=== PATIENT | male | born 1960 | race Caucasian/White ===

== ENCOUNTER 2016-10-19 11:04 | Emergency (ER) | payer BC ==
[2016-10-19] MEDS ORDERED: RX INFO: IV CONTRAST WAS GIVEN 1 EACH MISC MISCELLANE PRN (11:14)
[2016-10-19] MEDS ORDERED: SODIUM CHLORIDE 0.9% 500 ML IV STA (11:14)
[2016-10-19] MEDS ORDERED: SODIUM CHLORIDE 0.9% 1,000 ML IV STA (11:14)
[2016-10-19] MEDS: HYDROmorphone 1 MG/ML 1 ML SYRINGE IVP STA ×2 (11:19→13:00)
[2016-10-19 11:24] LABS: Basophils # (A) 0.1 k/uL (0-0.2); Basophils % (A) 1 %; CH 31.7; CHCM 34.8; Eosinophils # (A) 0.2 k/uL (0-0.7); Eosinophils % (A) 3 %; HCT 50.2 % (39.0-53.0); HDW 2.57; HGB 16.9 gm/dL (13.0-17.5); Luc # (Auto) 0.17; Luc % (Auto) 2; Lymphocytes # (A) 2.6 k/uL (1.0-4.8); Lymphocytes % (A) 30 %; MCH 30.9 pg (25.0-35.0); MCHC 33.7 g/dL (31.0-37.0); MCV 91.6 fL (80.0-100.0); Mean Platelet Volume 6.8; Monocytes # (A) 0.5 k/uL (0-1.0); Monocytes % (A) 6 %; Neutrophils # (A) 5.2 k/uL (1.3-7.7); Neutrophils % (A) 59 %; RBC 5.48 m/uL (4.30-5.90); RDW 13.6 % (11.5-15.5); WBC 8.8 k/uL (3.8-10.6); WBC (Perox) 8.22
--- NOTE | 2016-10-19 11:30 | ED ---
General Adult HPI - General Chief complaint: Trauma Stated complaint: Fall Time Seen by Provider: 10/19/16 11:13 Source: patient, family, EMS, RN notes reviewed Mode of arrival: EMS Limitations: no limitations - History of Present Illness Initial comments: Patient is a pleasant 56-year-old male presenting to the emergency department following a fall. Patient was up on a ladder towards the top of his house, possibly as high as 20 feet. Patient does not recall why he fell. Patient does not remember falling. Patient did fall and EMS suspects patient landed on his head and shoulder first. Patient does have moderate to severe discomfort of the posterior head and right shoulder. Patient has moderate discomfort of the left hip. Patient did not attempt to ambulate. Patient reportedly did lose consciousness between 1 and 2 minutes. Last tetanus immunization was within the past 2 years. Patient denies confusion at this time. Patient denies weakness. No vomiting. Discomfort is currently rated 8/10. Patient denies chest pain or dyspnea or abdominal pain. - Related Data Home Medications Medication Instructions Recorded Confirmed Atorvastatin [Lipitor] 40 mg PO DAILY 10/19/16 10/19/16 Cholecalciferol [Vitamin D3] 2,000 unit PO DAILY 10/19/16 10/19/16 Escitalopram [Lexapro] 10 mg PO DAILY 10/19/16 10/19/16 Liraglutide [Victoza 2-Lewis] 1.8 mg SQ DAILY 10/19/16 10/19/16 Loratadine [Claritin] 10 mg PO DAILY 10/19/16 10/19/16 Losartan-Hctz 50-12.5 mg [Hyzaar 1 tab PO DAILY 10/19/16 10/19/16 50-12.5] Metoprolol Succinate [Toprol XL] 50 mg PO DAILY 10/19/16 10/19/16 Mometasone Furoate [Nasonex] 2 spray EA NOSTRIL DAILY 10/19/16 10/19/16 Montelukast [Singulair] 10 mg PO DAILY 10/19/16 10/19/16 Terazosin [Hytrin] 2 mg PO HS 10/19/16 10/19/16 metFORMIN HCL [Metformin HCl] 500 mg PO BID 10/19/16 10/19/16 Allergies Allergy/AdvReac Type Severity Reaction Status Date / Time No Known Allergies Allergy Verified 10/19/16 11:26 Review of Systems ROS Statement: Those systems with pertinent positive or pertinent negative responses have been documented in the HPI. ROS Other: All systems not noted in ROS Statement are negative. Constitutional: Denies: fever Eyes: Denies: eye pain ENT: Denies: ear pain Respiratory: Denies: cough, dyspnea Cardiovascular: Denies: chest pain Endocrine: Denies: fatigue Gastrointestinal: Denies: abdominal pain Genitourinary: Denies: urgency Musculoskeletal: Denies: back pain Skin: Denies: rash Neurological: Reports: headache General Exam Limitations: no limitations General appearance: alert Head exam: Present: other (Posterior scalp abrasion) Eye exam: Present: normal appearance, PERRL, EOMI. Absent: nystagmus ENT exam: Present: normal oropharynx Neck exam: Present: normal inspection, other (C-collar is in place). Absent: tenderness Respiratory exam: Present: normal lung sounds bilaterally, chest wall tenderness (Minimal tenderness left lower ribs) Cardiovascular Exam: Present: regular rate, normal rhythm Expanded Peripheral pulses: 2+: Radial (R), Radial (L), Dorsalis Pedis (R), Dorsalis Pedis (L) GI/Abdominal exam: Present: soft, tenderness (Mild tenderness and mild erythema right mid abdomen). Absent: distended Extremities exam: Present: tenderness (Tenderness and pain with range of motion left anterior and lateral hip. Tenderness and pain with range of motion right shoulder and right lateral clavicle) Back exam: Present: normal inspection. Absent: tenderness, vertebral tenderness Neurological exam: Present: alert, oriented X3, CN II-XII intact. Absent: motor sensory deficit Psychiatric exam: Present: normal affect, normal mood Skin exam: Present: abrasion (Posterior scalp) Course - Reevaluation(s) Reevaluation #1: 10/19/16 12:37 Case was earlier discussed with on-call surgeon Dr. Devine at 11:08 AM. Patient and family updated on results and plan. They do request [facility] secondary to history of aortic aneurysm. 10/19/16 12:45 Case was discussed with Dr. Cullen at [facility] who will accept transfer. EKG Findings - EKG Comments: EKG Findings:: Normal sinus rhythm 84. First 3 AV block AZ of 202. QRS 128. QT 398. QTC 470. Right bundle martha block. Superior axis. Inferior Q waves. Inverted T waves leads 3 and aVF. Medical Decision Making - Lab Data Result diagrams: 10/19/16 11:11 10/19/16 11:11 Lab Results 10/19/16 10/19/16 10/19/16 Range/Units 11:11 11:11 11:11 WBC 8.8 (3.8-10.6) k/uL RBC 5.48 (4.30-5.90) m/uL Hgb 16.9 (13.0-17.5) gm/dL Hct 50.2 (39.0-53.0) % MCV 91.6 (80.0-100.0) fL MCH 30.9 (25.0-35.0) pg MCHC 33.7 (31.0-37.0) g/dL RDW 13.6 (11.5-15.5) % Plt Count 246 (150-450) k/uL Neutrophils % 59 % Lymphocytes % 30 % Monocytes % 6 % Eosinophils % 3 % Basophils % 1 % Neutrophils # 5.2 (1.3-7.7) k/uL Lymphocytes # 2.6 (1.0-4.8) k/uL Monocytes # 0.5 (0-1.0) k/uL Eosinophils # 0.2 (0-0.7) k/uL Basophils # 0.1 (0-0.2) k/uL PT (9.0-12.0) sec INR (<1.1) APTT (22.0-30.0) sec Sodium 147 H (137-145) mmol/L Potassium 3.9 (3.5-5.1) mmol/L Chloride 110 H (98-107) mmol/L Carbon Dioxide 21 L (22-30) mmol/L Anion Gap 16 mmol/L BUN 25 H (9-20) mg/dL Creatinine 1.05 (0.66-1.25) mg/dL Est GFR (MDRD) Af Amer >60 (>60 ml/min/1.73 sqM) Est GFR (MDRD) Non-Af >60 (>60 ml/min/1.73 sqM) Glucose 118 H (74-99) mg/dL POC Glucose (mg/dL) (75-99) mg/dL POC Glu Micro Photographer ID Plasma Lactic Acid Luis (0.7-2.0) mmol/L Calcium 10.1 (8.4-10.2) mg/dL Total Bilirubin 1.0 (0.2-1.3) mg/dL AST 45 (17-59) U/L ALT 74 H (21-72) U/L Alkaline Phosphatase 69 (38-126) U/L Total Creatine Kinase (55-170) U/L CK-MB (CK-2) (0.0-2.4) ng/mL CK-MB (CK-2) Rel Index Troponin I (0.000-0.034) ng/mL Total Protein 8.0 (6.3-8.2) g/dL Albumin 4.8 (3.5-5.0) g/dL Amylase 64 (30-110) U/L Lipase 253 (23-300) U/L Serum Alcohol <10 mg/dL Blood Type O Positive Blood Type Recheck No Antibody Screen NEGATIVE Spec Expiration Date 10/22/2016 - 231010/19/16 10/19/16 10/19/16 Range/Units 11:11 11:11 11:11 WBC (3.8-10.6) k/uL RBC (4.30-5.90) m/uL Hgb (13.0-17.5) gm/dL Hct (39.0-53.0) % MCV (80.0-100.0) fL MCH (25.0-35.0) pg MCHC (31.0-37.0) g/dL RDW (11.5-15.5) % Plt Count (150-450) k/uL Neutrophils % % Lymphocytes % % Monocytes % % Eosinophils % % Basophils % % Neutrophils # (1.3-7.7) k/uL Lymphocytes # (1.0-4.8) k/uL Monocytes # (0-1.0) k/uL Eosinophils # (0-0.7) k/uL Basophils # (0-0.2) k/uL PT 10.3 (9.0-12.0) sec INR 1.0 (<1.1) APTT 20.4 L (22.0-30.0) sec Sodium (137-145) mmol/L Potassium (3.5-5.1) mmol/L Chloride (98-107) mmol/L Carbon Dioxide (22-30) mmol/L Anion Gap mmol/L BUN (9-20) mg/dL Creatinine (0.66-1.25) mg/dL Est GFR (MDRD) Af Amer (>60 ml/min/1.73 sqM) Est GFR (MDRD) Non-Af (>60 ml/min/1.73 sqM) Glucose (74-99) mg/dL POC Glucose (mg/dL) (75-99) mg/dL POC Glu Micro Photographer ID Plasma Lactic Acid Luis 3.2 H* (0.7-2.0) mmol/L Calcium (8.4-10.2) mg/dL Total Bilirubin (0.2-1.3) mg/dL AST (17-59) U/L ALT (21-72) U/L Alkaline Phosphatase (38-126) U/L Total Creatine Kinase 257 H (55-170) U/L CK-MB (CK-2) 1.3 (0.0-2.4) ng/mL CK-MB (CK-2) Rel Index 0.5 Troponin I <0.012 (0.000-0.034) ng/mL Total Protein (6.3-8.2) g/dL Albumin (3.5-5.0) g/dL Amylase (30-110) U/L Lipase (23-300) U/L Serum Alcohol mg/dL Blood Type Blood Type Recheck Antibody Screen Spec Expiration Date 10/19/16 Range/Units 11:21 WBC (3.8-10.6) k/uL RBC (4.30-5.90) m/uL Hgb (13.0-17.5) gm/dL Hct (39.0-53.0) % MCV (80.0-100.0) fL MCH (25.0-35.0) pg MCHC (31.0-37.0) g/dL RDW (11.5-15.5) % Plt Count (150-450) k/uL Neutrophils % % Lymphocytes % % Monocytes % % Eosinophils % % Basophils % % Neutrophils # (1.3-7.7) k/uL Lymphocytes # (1.0-4.8) k/uL Monocytes # (0-1.0) k/uL Eosinophils # (0-0.7) k/uL Basophils # (0-0.2) k/uL PT (9.0-12.0) sec INR (<1.1) APTT (22.0-30.0) sec Sodium (137-145) mmol/L Potassium (3.5-5.1) mmol/L Chloride (98-107) mmol/L Carbon Dioxide (22-30) mmol/L Anion Gap mmol/L BUN (9-20) mg/dL Creatinine (0.66-1.25) mg/dL Est GFR (MDRD) Af Amer (>60 ml/min/1.73 sqM) Est GFR (MDRD) Non-Af (>60 ml/min/1.73 sqM) Glucose (74-99) mg/dL POC Glucose (mg/dL) 109 H (75-99) mg/dL POC Glu Micro Photographer ID Smita Blackman Plasma Lactic Acid Luis (0.7-2.0) mmol/L Calcium (8.4-10.2) mg/dL Total Bilirubin (0.2-1.3) mg/dL AST (17-59) U/L ALT (21-72) U/L Alkaline Phosphatase (38-126) U/L Total Creatine Kinase (55-170) U/L CK-MB (CK-2) (0.0-2.4) ng/mL CK-MB (CK-2) Rel Index Troponin I (0.000-0.034) ng/mL Total Protein (6.3-8.2) g/dL Albumin (3.5-5.0) g/dL Amylase (30-110) U/L Lipase (23-300) U/L Serum Alcohol mg/dL Blood Type Blood Type Recheck Antibody Screen Spec Expiration Date - Radiology Data Radiology results: image reviewed (X-ray of the right shoulder shows scapular fracture. X-ray left hip show suspicion for acetabular fracture. 1 view chest x-ray shows borderline mediastinum. X-ray of the pelvis shows no acute fracture. Questionable acetabular involvement. Computed tomography scan of the chest shows displaced right scapular fracture, left ninth and 10th rib fracture. CAT scan of the abdomen and pelvis shows A left renal cyst versus neoplasm, left transverse L1 through L5 3 process fracture. Left iliac bone fracture suspected from the sacroiliac joint to the anterior column of the acetabulum. Computed tomography scan the brain reveals no acute process. Computed tomography scan of cervical spine reveals no fracture. Degenerative disc disease is present.) Critical Care Time Critical Care Time: Yes Total Critical Care Time: 36 Disposition Clinical Impression: Right scapula fracture, Concussion, Left rib fracture, Fracture of transverse process of lumbar vertebra, Acetabulum fracture, left, Fracture dislocation of sacroiliac joint Disposition: OTHER INSTITUTION NOT DEFINED Referrals: Billie Haji, [Primary Care Provider] - 1-2 days Time of Disposition: 12:47 - Out of Hospital Transfer - Req. Specs Out of Hospital Transfer - Requested Specifics: Other Emergency Center
[2016-10-19 11:33] LABS: Glucose,Whole Blood 109 mg/dL (75-99)
[2016-10-19 11:44] LABS: Prothrombin Time 10.3 sec (9.0-12.0)
[2016-10-19] MEDS ORDERED: ONDANSETRON 4 MG/2 ML VIAL IVP STA (11:45)
--- NOTE | 2016-10-19 11:45 | XR ---
EXAMINATION TYPE: XR chest 1V portable DATE OF EXAM: 10/19/2016 COMPARISON: NONE HISTORY: Pain post fall TECHNIQUE: Single frontal view of the chest is obtained. FINDINGS: There is no focal air space opacity, pleural effusion, or pneumothorax seen. The cardiac silhouette size is within normal limits. The osseous structures are intact. Mediastinum is somewhat prominent. IMPRESSION: Mediastinum widened correlate clinically.
[2016-10-19 11:46] LABS: Partial Thromboplastin Time 20.4 sec (22.0-30.0)
--- NOTE | 2016-10-19 11:47 | XR ---
EXAMINATION TYPE: XR pelvis AP view DATE OF EXAM: 10/19/2016 COMPARISON: NONE HISTORY: Pain post fall The osseous structures are intact and the joint spaces are preserved. No acute fracture is seen. Vi sualized bowel gas pattern is nonspecific. IMPRESSION: 1. No acute fracture.
[2016-10-19 11:49] LABS: Creatine Kinase 257 U/L (55-170)
--- NOTE | 2016-10-19 11:57 | CT ---
EXAMINATION TYPE: CT brain mere ledezma con DATE OF EXAM: 10/19/2016 COMPARISON: NONE HISTORY: Fall from roof, pt struck back of head CT DLP: 1813.3 mGycm Automated exposure control for dose reduction was used. TECHNIQUE: CT scan of the head and cervical spine are performed without contrast. FINDINGS: There is no acute intracranial hemorrhage, mass effect, or midline shift identified. The ventricles and sulci are within normal limits in size. The globes are intact and the visualized sin uses are clear. Cervical spine is limited assessment spinal canal limited due to technique and artifact. Multilevel degenerative disc disease with severe changes at C5-C6 and C6-C7 posterior spondylosis and possible canal stenosis. Mild multilevel facet arthropathy. Uncovertebral joint hypertrophy seen at virtually all levels. There appears to be a fracture portion of the scapula included on exam. IMPRESSION: 1. There is no acute fracture or dislocation evident in the cervical spine. 2. No acute intracranial hemorrhage, mass effect, or midline shift is seen. 3. there appears be a fracture of the scapula which is only partially included on exam on the right. 4. Multilevel degenerative disc disease. Suspect canal stenosis at C5-6 and C6-C7. Follow-up MRI aditya mmended
[2016-10-19 12:02] LABS: Creatine Kinase MB 1.3 ng/mL (0.0-2.4); Troponin I <0.012 ng/mL (0.000-0.034)
[2016-10-19 12:03] LABS: ALT 74 U/L (21-72); AST 45 U/L (17-59); Alcohol <10 mg/dL; Alkaline Phosphatase 69 U/L (38-126); Anion Gap 16 mmol/L; Blood Urea Nitrogen 25 mg/dL (9-20); Calcium 10.1 mg/dL (8.4-10.2); Carbon Dioxide 21 mmol/L (22-30); Chloride 110 mmol/L (98-107); Glucose 118 mg/dL (74-99); Non-African American GFR(MDRD) >60 (>60 ml/min/1.73 sqM); Sodium 147 mmol/L (137-145)
[2016-10-19 12:04] LABS: Amylase 64 U/L (30-110); Potassium 3.9 mmol/L (3.5-5.1)
--- NOTE | 2016-10-19 12:15 | CT ---
EXAMINATION TYPE: CT ChestAbdPelvis w con DATE OF EXAM: 10/19/2016 COMPARISON: NONE HISTORY: Fall from roof, pt c/o Lt hip pain, Rt shoulder pain CT DLP: 1738.7 mGycm Automated exposure control for dose reduction was used. CONTRAST: CT scan of the chest, abdomen and pelvis is performed without Oral Contrast and with IV Contrast, pat ient injected with 100 mL of Omnipaque 300. FINDINGS: LUNGS: No sizable pneumothorax. Subsegmental changes posteriorly may be related to dependent atelecta sis. No pleural effusion. No sizable area of consolidation.. MEDIASTINUM: Heart size is normal. No retrosternal hematoma. No soft tissue or fluid within the media stinum. Motion artifact limits assessment of the aortic root. Aorta of normal caliber as visualized. The heart is prominent and there is a trace amount of pericardial fluid. OTHER: Displaced fracture of the right scapula. LIVER/GB: Tiny 5 mm hypodensity left lobe of the liver too small to characterize but likely related t o tiny cyst.. PANCREAS: No significant abnormality is seen. SPLEEN: No significant abnormality is seen. ADRENALS: No significant abnormality is seen. KIDNEYS: Hypodense lesion involving the left kidney measures 26 Hounsfield units does not meet the cr iteria of a cyst. The renal artery enhances normally at this level. Differential include a solid neop lasm, complicated cyst or possibly renal contusion. Correlate clinically. Correlate with urinalysis.. BOWEL: No significant abnormality is seen. : No gross abnormality seen. LYMPH NODES: No greater than 1 cm abdominal or pelvic lymph nodes are appreciated. OSSEOUS STRUCTURES: Fracture involving the anterior column of the left acetabulum. Degenerative randolph e of the spine. Right scapular fracture displaced. There is a fracture of the left 11th rib posteriorly in two locations. There is a fracture of the lef t 10th rib and ninth rib in one location posterior. Suspect a fracture involving the anterior, the left acetabulum extends into the left iliac bone to th e level of the left SI joint. Question left transverse process fracture L1 with definitive transverse process fractures of L2 and L 3. A defect involving the left facet at L5 superiorly appears chronic with sclerotic margins related to facet arthropathy. Multilevel degenerative disc disease and facet arthropathy noted. OTHER: Abdominal aorta of normal caliber. No free fluid or free air. IMPRESSION: 1. Displaced right scapular fracture. 2. Fracture through the left iliac bone extending from the left SI joint through the anterior column of the acetabulum. There may be minimal asymmetry of the SI joints on the left. 3. Left transverse process fracture L1-L3. Possibility L1 represents a congenital variant, whereas, L 2 and L3 left transverse fractures. Definitive. 4. Fractures of the left ninth 10th and left ribs posteriorly. Fracture involving the left lung as no yoli on coronal views appears in 2 locations. 5. Hypodensity within the left kidney does not meet the criteria of simple cyst. Most likely the basi s of a complicated cyst or neoplasm. However, pedicle site of trauma and contusion not entirely exclu ded. Correlate with urinalysis. 6. There is a tiny subcentimeter hypodensity within the left lobe of the liver too small to character ize. Likely chronic. Possibly tiny cyst.
--- NOTE | 2016-10-19 12:16 | XR ---
EXAMINATION TYPE: XR Hip Complete LT DATE OF EXAM: 10/19/2016 COMPARISON: NONE HISTORY: Pain TECHNIQUE: 2 views submitted FINDINGS: Lucency through the anterior column of the left acetabulum extending toward the iliac bone. IMPRESSION: 1. Findings suspicious for fracture involving the anterior column of the left acetabulum with extensi on into the left iliac bone.
--- NOTE | 2016-10-19 12:17 | XR ---
EXAMINATION TYPE: XR shoulder limited RT DATE OF EXAM: 10/19/2016 CLINICAL HISTORY: Pain TECHNIQUE: Three views of the right shoulder are obtained. COMPARISON: None. FINDINGS: There is deformity involving the superior margin of the scapula. Visualized ribs are intact . Lung clear. IMPRESSION: 1. Findings suggestive of superior scapular fracture.
[2016-10-19 13:12] VITALS: BP 142/70; PULSE 85; RESP 18; TEMP 98.3
== END 2016-10-19 13:03 | disposition short-term general hospital (02) ==
LOC: EC 11:04
DX: S06.0X1A Concussion with loss of consciousness of 30 minutes or less, initial encounter (principal); S42.101A Fracture of unspecified part of scapula, right shoulder, initial encounter for closed fracture; S22.32XA Fracture of one rib, left side, initial encounter for closed fracture; S32.019A Unspecified fracture of first lumbar vertebra, initial encounter for closed fracture; S32.029A Unspecified fracture of second lumbar vertebra, initial encounter for closed fracture; S32.039A Unspecified fracture of third lumbar vertebra, initial encounter for closed fracture; S32.432A Displaced fracture of anterior column [iliopubic] of left acetabulum, initial encounter for closed fracture; S32.10XA Unspecified fracture of sacrum, initial encounter for closed fracture; Z79.84 Long term (current) use of oral hypoglycemic drugs; Z79.899 Other long term (current) drug therapy; W11.XXXA Fall on and from ladder, initial encounter; Y92.009 Unspecified place in unspecified non-institutional (private) residence as the place of occurrence of the external cause
CPT/HCPCS: 99291; 96374; 96375; 96361; 36415; 93005; 86900; 86901; 80053; 82150; 82550; 82553; 83605; 83690; 84484; 85025; 85610; 85730; 86850; 80320; 71010; 72170; 73502; 73020; 72125; 70450; 71260; 74177; J2405; J1170; Q9967

== ENCOUNTER → 2017-01-13 | Outpatient (CLI) | payer OTHER ==
--- NOTE | 2017-01-13 08:21 | MR ---
EXAMINATION TYPE: MR shoulder RT wo con DATE OF EXAM: 01/13/2017 COMPARISON: Right shoulder x-ray October 19, 2016. Outside right shoulder x-ray January 07, 2017. HISTORY: Rt shoulder pain per order. Sharp pain for 2 months with difficulty raising overhead per pat ient. TECHNIQUE: Multiplanar, multisequence imaging of the right shoulder is performed without contrast. FINDINGS: Rotator Cuff: There is marked increased signal distal supraspinatus and infraspinatus tendons from ac romion level to superior lateral humeral head attachment. In addition there focal articular surface t ears identified. For reference significant partial tear supraspinatus tendon is seen at articular brian face measuring 12 mm AP diameter and 12 mm transversely on parasagittal images 21 and paracoronal jeniffer ge 11. There is full-thickness partial tear of the supraspinatus tendon seen best paracoronal image 1 7 measuring roughly 4 mm transversely by 7 mm AP diameter on parasagittal image 23. Rotator cuff musc le bulk is preserved. Some increased signal and surrounding fluid is seen in subscapularis tendon best on axial image 12. Acromioclavicular Joint: There is capsular hypertrophy and joint space loss at acromioclavicular join t. Inferior fat plane is maintained. Glenohumeral Joint: There is moderate glenohumeral joint effusion. Joint space loss is present. No si gnificant spurring is seen. Labrum: The labrum appears grossly intact given limitation of non-arthrogram study. Biceps Tendon: The long head of biceps is in normal location within bicipital groove. Surrounding flu id is likely related to joint effusion. Bone marrow signal: Heterogeneity is consistent with red marrow reconversion. Subchondral cystic carr ge superolateral humeral head is present. Other: No additional significant abnormality is appreciated. IMPRESSION: 1. Moderate to severe tendinosis with high-grade articular surface tears of supraspinatus and infrasp inatus tendons noted. 2. Moderate degenerative changes glenohumeral and acromioclavicular joints as detailed above. 3. Moderate subscapularis tendinosis and probable tenosynovitis.
== END | disposition home or self-care (01) ==
LOC: RADMRIMAIN 07:05
PROVIDERS: ATTEND Orthopaedic Surgery
DX: S46.011A Strain of muscle(s) and tendon(s) of the rotator cuff of right shoulder, initial encounter (principal); M75.91 Shoulder lesion, unspecified, right shoulder

== ENCOUNTER 2017-09-27 21:06 | Emergency (ER) | payer BC, OTHER ==
--- NOTE | 2017-09-27 22:19 | ED ---
Skin/Abscess/FB HPI - General Chief complaint: Skin/Abscess/Foreign Body Stated complaint: Hand injury Time Seen by Provider: 09/27/17 21:23 Source: patient, family Mode of arrival: ambulatory Limitations: no limitations - History of Present Illness Initial comments: This patient is a 57-year-old man who presents to be evaluated for bleeding from a spot on his right hand, where he had frozen wart off. The patient states that he bumped the hand and it started bleeding this afternoon and it continues to have small amounts of bleeding since that time. He denies symptoms of anemia, including no chest pain, dyspnea, lightheadedness, diaphoresis, palpitations or syncope. MD complaint: other -: hour(s) Tetanus Up to Date: yes Location: R hand Severity: mild Quality: other (No pain) Improves with: none Worsens with: none Associated symptoms: denies other symptoms - Related Data Home Medications Medication Instructions Recorded Confirmed Atorvastatin [Lipitor] 40 mg PO DAILY 10/19/16 09/27/17 Cholecalciferol [Vitamin D3] 2,000 unit PO DAILY 10/19/16 09/27/17 Escitalopram [Lexapro] 10 mg PO DAILY 10/19/16 09/27/17 Liraglutide [Victoza 2-Lewis] 1.8 mg SQ HS 10/19/16 09/27/17 Loratadine [Claritin] 10 mg PO DAILY 10/19/16 09/27/17 Losartan-Hctz 50-12.5 mg [Hyzaar 1 tab PO DAILY 10/19/16 09/27/17 50-12.5] Metoprolol Succinate [Toprol XL] 50 mg PO DAILY 10/19/16 09/27/17 Mometasone Furoate [Nasonex] 2 spray EA NOSTRIL DAILY PRN 10/19/16 09/27/17 Montelukast [Singulair] 10 mg PO DAILY 10/19/16 09/27/17 metFORMIN HCL [Metformin HCl] 500 mg PO BID 10/19/16 09/27/17 Previous Rx's Medication Instructions Recorded HYDROcodone/APAP 7.5-325MG [[place] 1 each PO Q6HR PRN #30 tab 03/05/17 7.5] Allergies Allergy/AdvReac Type Severity Reaction Status Date / Time No Known Allergies Allergy Verified 09/28/17 15:03 Review of Systems ROS Statement: Those systems with pertinent positive or pertinent negative responses have been documented in the HPI. ROS Other: All systems not noted in ROS Statement are negative. Constitutional: Denies: fever, chills Respiratory: Denies: dyspnea Cardiovascular: Denies: chest pain, palpitations, syncope Skin: Reports: as per HPI, lesions Hematological/Lymphatic: Denies: easy bleeding Past Medical History Past Medical History: Diabetes Mellitus, Hyperlipidemia, Hypertension Additional Past Medical History / Comment(s): AAA- patient seen for this at [facility] yearly. History of Any Multi-Drug Resistant Organisms: None Reported Past Surgical History: Tonsillectomy Past Psychological History: Depression Smoking Status: Never smoker Past Alcohol Use History: None Reported Past Drug Use History: None Reported General Exam Limitations: no limitations General appearance: alert, in no apparent distress Skin exam: Present: warm, dry, normal color, other (The patient has an area of the exuberant granulation tissue to the palm of the hand where he had the wart frozen off.) Course Vital Signs 09/27/17 09/27/17 21:14 22:38 Temperature 97.9 F 97.8 F Pulse Rate 62 66 Respiratory 18 19 Rate Blood Pressure 177/88 163/82 O2 Sat by Pulse 97 96 Oximetry Medical Decision Making - Medical Decision Making Patient's 57-year-old man with small area of exuberant granulation tissue to the right palm. This was cauterized with silver nitrate. Discussed appropriate follow-up and further care. Discussed return parameters. Disposition Clinical Impression: Exuberant granulation tissue Disposition: HOME SELF-CARE Condition: Good Instructions: Acute Wounds (ED) Is patient prescribed a controlled substance at d/c from ED?: No Referrals: Billie Haji DO [Primary Care Provider] - 1-2 days Judd Torres MD [STAFF PHYSICIAN] - 1-2 days
[2017-09-27 22:40] VITALS: BP 163/82; PULSE 66; RESP 19; TEMP 97.8
== END 2017-09-27 22:40 | disposition home or self-care (01) ==
LOC: EC 21:06
DX: L92.9 Granulomatous disorder of the skin and subcutaneous tissue, unspecified (principal); E11.9 Type 2 diabetes mellitus without complications; I10 Essential (primary) hypertension; E78.5 Hyperlipidemia, unspecified; F32.9 Major depressive disorder, single episode, unspecified; Z79.899 Other long term (current) drug therapy; Z79.84 Long term (current) use of oral hypoglycemic drugs
CPT/HCPCS: 17250; 99283

== ENCOUNTER 2017-09-28 14:57 | Emergency (ER) | payer BC ==
--- NOTE | 2017-09-28 15:43 | ED ---
General Adult HPI - General Chief complaint: Recheck/Abnormal Lab/Rx Stated complaint: Recheck Source: patient, family, RN notes reviewed, old records reviewed Mode of arrival: ambulatory Limitations: no limitations - History of Present Illness Initial comments: Chief complaint history of present illness this is a 57-year-old male here with a complaint of a bleeding wart on his right hand. The patient's had a wart at the base of his ring finger on the volar surface for many years. Recently for the past week or more he is applying topical medication for it to be dissolved. He was in emergency room yesterday because it continued to bleed. It did well throughout the night until today. It bled again. Patient is here for persistent bleeding from around the edges of the wart is being dissolved by his chemical that he is applying at home. - Related Data Home Medications Medication Instructions Recorded Confirmed Atorvastatin [Lipitor] 40 mg PO DAILY 10/19/16 09/27/17 Cholecalciferol [Vitamin D3] 2,000 unit PO DAILY 10/19/16 09/27/17 Escitalopram [Lexapro] 10 mg PO DAILY 10/19/16 09/27/17 Liraglutide [Victoza 2-Lewis] 1.8 mg SQ HS 10/19/16 09/27/17 Loratadine [Claritin] 10 mg PO DAILY 10/19/16 09/27/17 Losartan-Hctz 50-12.5 mg [Hyzaar 1 tab PO DAILY 10/19/16 09/27/17 50-12.5] Metoprolol Succinate [Toprol XL] 50 mg PO DAILY 10/19/16 09/27/17 Mometasone Furoate [Nasonex] 2 spray EA NOSTRIL DAILY PRN 10/19/16 09/27/17 Montelukast [Singulair] 10 mg PO DAILY 10/19/16 09/27/17 metFORMIN HCL [Metformin HCl] 500 mg PO BID 10/19/16 09/27/17 Previous Rx's Medication Instructions Recorded HYDROcodone/APAP 7.5-325MG [[place] 1 each PO Q6HR PRN #30 tab 03/05/17 7.5] Allergies Allergy/AdvReac Type Severity Reaction Status Date / Time No Known Allergies Allergy Verified 09/28/17 15:03 Review of Systems ROS Statement: Those systems with pertinent positive or pertinent negative responses have been documented in the HPI. Review of systems no other complaints other than bleeding from the site as noted in the chief complaint. No known ALLERGIES. Medical problems as noted on the hard chart. Pertinent today's visit just bleeding from my wart on his hand. ROS Other: All systems not noted in ROS Statement are negative. Past Medical History Past Medical History: Diabetes Mellitus, Hyperlipidemia, Hypertension Additional Past Medical History / Comment(s): AAA- patient seen for this at [facility] yearly. History of Any Multi-Drug Resistant Organisms: None Reported Past Surgical History: Orthopedic Surgery, Tonsillectomy Additional Past Surgical History / Comment(s): shoulder Past Psychological History: Depression Smoking Status: Never smoker Past Alcohol Use History: None Reported Past Drug Use History: None Reported General Exam - General Exam Comments Initial Comments: Physical exam Vital signs are stable temperature 97.3 pulse 68 respiratory rate 18 pulse ox 97 % room air blood pressure 161/74. Examination of his right hand shows bleeding from the edges of a wart that he's been trying to dissolve with home remedyover- the-counter medication. As he moves a wart blood comes from the edges. The wart will be numb and removed and silver nitrate will be applied. Patient demonstrates full range of motion of the hand without difficulty. No signs of infection. Limitations: no limitations Course Vital Signs 09/28/17 15:00 Temperature 97.3 F L Pulse Rate 68 Respiratory 18 Rate Blood Pressure 161/74 O2 Sat by Pulse 97 Oximetry Procedures - Procedures Initial comment: Procedure; 1% lidocaine was used to numb the area. While briskly cleaning though wart it fell off without needing to be cut. The resulting defect measures approximately 8 mm round. It was cauterized with silver nitrate with good effect. Small amount of bacitracin and sterile bandage applied. Patient told that if it bleeds again apply direct pressure for 20 minutes. If needed return emergency room as needed. Dr. Salinas Medical Decision Making - Medical Decision Making Medical decision making; 57-year-old male here with his . The patient had bleeding from a wart on the volar surface of his right right hand. The edges around the wart prevent adequate compression to the blood vessels. The patient' s been using an [id number] medication to dissolve the wart over the past several days to week. There is necessary to numb the area and remove the wart by simple rubbing with a sterile gauze. It was then dressed. Disposition Clinical Impression: Cutaneous wart Disposition: HOME SELF-CARE Condition: Fair Instructions: Common Wart (ED) Additional Instructions: Apply pressure if it bleeds. Follow-up with family physician. Is patient prescribed a controlled substance at d/c from ED?: No Referrals: Billie Haji DO [Primary Care Provider] - 1-2 days Time of Disposition: 15:51
[2017-09-28 16:08] VITALS: BP 159/77; PULSE 74; RESP 16; TEMP 98
== END 2017-09-28 16:00 | disposition home or self-care (01) ==
LOC: EC 14:57
DX: B07.8 Other viral warts (principal); E11.9 Type 2 diabetes mellitus without complications; E78.5 Hyperlipidemia, unspecified; I10 Essential (primary) hypertension; F32.9 Major depressive disorder, single episode, unspecified; I71.4 Abdominal aortic aneurysm, without rupture; Z79.84 Long term (current) use of oral hypoglycemic drugs; Z79.899 Other long term (current) drug therapy
CPT/HCPCS: 12001; 99283

== ENCOUNTER 2021-02-27 09:47 | Emergency (ER) | payer BC, OTHER ==
[2021-02-27 09:54] VITALS: TEMP 99.3
[2021-02-27] MEDS ORDERED: DEXAMETHASONE SOD PHOSPHATE 10 MG/ML 1 ML VIAL IVP STA (10:27)
[2021-02-27] MEDS ORDERED: ONDANSETRON 4 MG/2 ML VIAL IVP STA (10:29)
[2021-02-27] MEDS ORDERED: SODIUM CHLORIDE 0.9% 1,000 ML IV ONE (10:29)
--- NOTE | 2021-02-27 10:30 | ED ---
General Adult HPI - General Chief complaint: Upper Respiratory Infection Stated complaint: Covid+ Time Seen by Provider: 02/27/21 09:58 Source: patient Mode of arrival: ambulatory Limitations: no limitations - History of Present Illness Initial comments: 60-year-old male patient presented for evaluation of cough, congestion, fevers. States his been sick for the last 2 weeks. States recently his fevers have been worsening, temperatures as high as 103F. States he has persistent cough and shortness of breath. Reports abdominal muscle soreness. States his been unable to eat or drink for the last 2 days. Reports nausea, vomiting, diarrhea. State s he saw his doctor yesterday and was tested for Covid but does not have results yet. Patient denies any recent rash, fever, chills, cough, shortness of breath, chest pain, abdominal pain, nausea, vomiting, diarrhea, constipation, back pain, numbness, tingling, dizziness, weakness, hematuria, dysuria, urinary urgency, urinary frequency, headache, visual changes, or any other complaints. - Related Data Home Medications Medication Instructions Recorded Confirmed Atorvastatin [Lipitor] 40 mg PO DAILY 10/19/16 09/27/17 Cholecalciferol [Vitamin D3] 2,000 unit PO DAILY 10/19/16 09/27/17 Escitalopram [Lexapro] 10 mg PO DAILY 10/19/16 09/27/17 Liraglutide [Victoza 2-Lewis] 1.8 mg SQ HS 10/19/16 09/27/17 Loratadine [Claritin] 10 mg PO DAILY 10/19/16 09/27/17 Losartan-Hctz 50-12.5 mg [Hyzaar 1 tab PO DAILY 10/19/16 09/27/17 50-12.5] Metoprolol Succinate [Toprol XL] 50 mg PO DAILY 10/19/16 09/27/17 Mometasone Furoate [Nasonex] 2 spray EA NOSTRIL DAILY PRN 10/19/16 09/27/17 Montelukast [Singulair] 10 mg PO DAILY 10/19/16 09/27/17 metFORMIN HCL [Metformin HCl] 500 mg PO BID 10/19/16 09/27/17 Previous Rx's Medication Instructions Recorded HYDROcodone/APAP 7.5-325MG [[place] 1 each PO Q6HR PRN #30 tab 03/05/17 7.5] Dexamethasone 6 mg PO DAILY #9 tablet 02/27/21 Dicyclomine [Bentyl] 20 mg PO QID #10 tablet 02/27/21 Ondansetron [Zofran ODT] 4 mg PO Q8HR PRN #20 tab 02/27/21 guaiFENesin-DM 600/30MG [Mucinex 2 each PO Q12HR PRN #20 tab 02/27/21 Dm] Allergies Allergy/AdvReac Type Severity Reaction Status Date / Time No Known Allergies Allergy Verified 02/27/21 09:54 Review of Systems ROS Statement: Those systems with pertinent positive or pertinent negative responses have been documented in the HPI. ROS Other: All systems not noted in ROS Statement are negative. Past Medical History Past Medical History: Diabetes Mellitus, Hyperlipidemia, Hypertension Additional Past Medical History / Comment(s): AAA- patient seen for this at [facility] yearly. History of Any Multi-Drug Resistant Organisms: None Reported Past Surgical History: Orthopedic Surgery, Tonsillectomy Additional Past Surgical History / Comment(s): shoulder Past Psychological History: Depression Smoking Status: Never smoker Past Alcohol Use History: None Reported Past Drug Use History: None Reported General Exam Limitations: no limitations General appearance: alert, in no apparent distress, other (This is a well developed, well nourished adult male patient in no acute distress. ) ENT exam: Present: normal exam, normal oropharynx, mucous membranes moist Respiratory exam: Present: normal lung sounds bilaterally, other (persistent cough). Absent: respiratory distress, wheezes, rales, rhonchi, stridor Cardiovascular Exam: Present: regular rate, normal rhythm, normal heart sounds. Absent: systolic murmur, diastolic murmur, rubs, gallop, clicks GI/Abdominal exam: Present: soft, normal bowel sounds. Absent: distended, tenderness, guarding, rebound, rigid Neurological exam: Present: alert, oriented X3, CN II-XII intact Psychiatric exam: Present: normal affect, normal mood Skin exam: Present: warm, dry, intact, normal color. Absent: rash Course Vital Signs 02/27/21 02/27/21 09:49 12:22 Temperature 99.3 F Pulse Rate 94 89 Respiratory 22 20 Rate Blood Pressure 179/87 187/89 O2 Sat by Pulse 93 L 95 Oximetry EKG Findings - EKG Comments: EKG Findings:: EKG obtained at 1031 shows normal sinus rhythm with a ventricular rate of 91, MO interval 194, QRS duration 120, QT 384, QTC 472. No evidence of ST elevation or depression. Medical Decision Making - Medical Decision Making 60 year-old male patient presents for evaluation of cough, nausea, and feeling unwell. Physical examination reveals clear equal lung sounds pretty does have persistent cough. Oxygen saturation is 94-95% on room air. Labs reviewed and are relatively unremarkable. Chest x-ray showed infiltrates in the lower lobes. He was given dose of dexamethasone here. He is on the treatment window for monoclonal antibodies. He'll be discharged home with prescriptions for Zofran, Mucinex, Bentyl, and dexamethasone. Instructed to follow-up with his primary care physician for recheck in 1-2 days. Return parameters were discussed in detail. He verbalizes understanding and agrees with this plan. Case discussed with my attending Dr. Hart. - Lab Data Result diagrams: 02/27/21 10:20 02/27/21 10:20 Lab Results 02/27/21 02/27/21 02/27/21 Range/Units 10:20 10:20 10:20 WBC 6.2 (3.8-10.6) k/uL RBC 5.38 (4.30-5.90) m/uL Hgb 16.3 (13.0-17.5) gm/dL Hct 46.3 (39.0-53.0) % MCV 86.1 (80.0-100.0) fL MCH 30.3 (25.0-35.0) pg MCHC 35.2 (31.0-37.0) g/dL RDW 13.7 (11.5-15.5) % Plt Count 215 (150-450) k/uL MPV 7.3 Neutrophils % 79 % Lymphocytes % 17 % Monocytes % 3 % Eosinophils % 0 % Basophils % 0 % Neutrophils # 4.9 (1.3-7.7) k/uL Lymphocytes # 1.0 (1.0-4.8) k/uL Monocytes # 0.2 (0-1.0) k/uL Eosinophils # 0.0 (0-0.7) k/uL Basophils # 0.0 (0-0.2) k/uL PT 10.1 (9.0-12.0) sec INR 0.9 (<1.2) APTT 29.1 (22.0-30.0) sec Sodium 134 L (137-145) mmol/L Potassium 4.2 (3.5-5.1) mmol/L Chloride 98 (98-107) mmol/L Carbon Dioxide 24 (22-30) mmol/L Anion Gap 12 mmol/L BUN 13 (9-20) mg/dL Creatinine 0.65 L (0.66-1.25) mg/dL Est GFR (CKD-EPI)AfAm >90 (>60 ml/min/1.73 sqM) Est GFR (CKD-EPI)NonAf >90 (>60 ml/min/1.73 sqM) Glucose 171 H (74-99) mg/dL Plasma Lactic Acid Luis (0.7-2.0) mmol/L Calcium 8.9 (8.4-10.2) mg/dL Magnesium 2.1 (1.6-2.3) mg/dL Total Bilirubin 0.5 (0.2-1.3) mg/dL AST 46 (17-59) U/L ALT 72 H (4-49) U/L Alkaline Phosphatase 55 (38-126) U/L Lactate Dehydrogenase 860 H (313-618) U/L C-Reactive Protein 3.7 H (<1.0) mg/dL Total Protein 7.5 (6.3-8.2) g/dL Albumin 4.3 (3.5-5.0) g/dL Coronavirus (PCR) (Not Detectd) 02/27/21 02/27/21 Range/Units 10:20 10:20 WBC (3.8-10.6) k/uL RBC (4.30-5.90) m/uL Hgb (13.0-17.5) gm/dL Hct (39.0-53.0) % MCV (80.0-100.0) fL MCH (25.0-35.0) pg MCHC (31.0-37.0) g/dL RDW (11.5-15.5) % Plt Count (150-450) k/uL MPV Neutrophils % % Lymphocytes % % Monocytes % % Eosinophils % % Basophils % % Neutrophils # (1.3-7.7) k/uL Lymphocytes # (1.0-4.8) k/uL Monocytes # (0-1.0) k/uL Eosinophils # (0-0.7) k/uL Basophils # (0-0.2) k/uL PT (9.0-12.0) sec INR (<1.2) APTT (22.0-30.0) sec Sodium (137-145) mmol/L Potassium (3.5-5.1) mmol/L Chloride (98-107) mmol/L Carbon Dioxide (22-30) mmol/L Anion Gap mmol/L BUN (9-20) mg/dL Creatinine (0.66-1.25) mg/dL Est GFR (CKD-EPI)AfAm (>60 ml/min/1.73 sqM) Est GFR (CKD-EPI)NonAf (>60 ml/min/1.73 sqM) Glucose (74-99) mg/dL Plasma Lactic Acid Luis 1.3 (0.7-2.0) mmol/L Calcium (8.4-10.2) mg/dL Magnesium (1.6-2.3) mg/dL Total Bilirubin (0.2-1.3) mg/dL AST (17-59) U/L ALT (4-49) U/L Alkaline Phosphatase (38-126) U/L Lactate Dehydrogenase (313-618) U/L C-Reactive Protein (<1.0) mg/dL Total Protein (6.3-8.2) g/dL Albumin (3.5-5.0) g/dL Coronavirus (PCR) Detected A (Not Detectd) - Radiology Data Radiology results: report reviewed, image reviewed 1 x-ray of the chest is obtained. Report was reviewed in its entirety. Impression by Dr. Rodríguez shows low lung volumes with new bilateral mid to lower lung opacities consistent with COVID-19 infection as suspected clinically. Disposition Clinical Impression: COVID-19 Disposition: HOME SELF-CARE Condition: Good Instructions (If sedation given, give patient instructions): Coronavirus Disease 2019 (COVID-19) Additional Instructions: Increase fluids. Rest. Take tylenol and motrin for fever control. Follow-up with the primary care physician for recheck in 1-2 days. Return for any new, worsening, or concerning symptoms. Prescriptions: Dicyclomine [Bentyl] 20 mg PO QID #10 tablet Dexamethasone 6 mg PO DAILY #9 tablet guaiFENesin-DM 600/30MG [Mucinex Dm] 2 each PO Q12HR PRN #20 tab PRN Reason: Cough Ondansetron [Zofran ODT] 4 mg PO Q8HR PRN #20 tab PRN Reason: Nausea Is patient prescribed a controlled substance at d/c from ED?: No Referrals: Billie Haji DO [Primary Care Provider] - 1-2 days Time of Disposition: 12:03
--- NOTE | 2021-02-27 11:17 | XR ---
EXAMINATION TYPE: XR chest 1V portable DATE OF EXAM: 02/27/2021 COMPARISON: Chest x-ray and CT October 19, 2016 HISTORY: Pneumonia and cough. TECHNIQUE: Single AP portable frontal view of the chest is obtained. FINDINGS: Persistent low lung volumes with new lower lung opacities bilaterally. The cardiac silhou ette size is stable and within normal limits. Persistent slight left-sided tracheal deviation and macie rowing without mediastinal mass. The osseous structures are intact. IMPRESSION: Low lung volumes with new bilateral mid to lower lung opacities consistent with covid-19 infection as suspected clinically.
[2021-02-27 11:22] LABS: Basophils % (A) 0 %; Eosinophils % (A) 0 %; HCT 46.3 % (39.0-53.0); HGB 16.3 gm/dL (13.0-17.5); Lymphocytes % (A) 17 %; MCH 30.3 pg (25.0-35.0); MCHC 35.2 g/dL (31.0-37.0); MCV 86.1 fL (80.0-100.0); Mean Platelet Volume 7.3; Monocytes # (A) 0.2 k/uL (0-1.0); Monocytes % (A) 3 %; Neutrophils # (A) 4.9 k/uL (1.3-7.7); Neutrophils % (A) 79 %; Platelet Count 215 k/uL (150-450); RBC 5.38 m/uL (4.30-5.90); RDW 13.7 % (11.5-15.5); WBC 6.2 k/uL (3.8-10.6)
[2021-02-27 11:31] LABS: ALT 72 U/L (4-49); AST 46 U/L (17-59); African American GFR (CKD) >90 (>60 ml/min/1.73 sqM); Albumin 4.3 g/dL (3.5-5.0); Alkaline Phosphatase 55 U/L (38-126); Anion Gap 12 mmol/L; Blood Urea Nitrogen 13 mg/dL (9-20); C Reactive Protein 3.7 mg/dL (<1.0); Calcium 8.9 mg/dL (8.4-10.2); Carbon Dioxide 24 mmol/L (22-30); Chloride 98 mmol/L (98-107); Glucose 171 mg/dL (74-99); LDH 860 U/L (313-618); Magnesium 2.1 mg/dL (1.6-2.3); Non-African American GFR(CKD) >90 (>60 ml/min/1.73 sqM); Potassium 4.2 mmol/L (3.5-5.1); Sodium 134 mmol/L (137-145); Total Bilirubin 0.5 mg/dL (0.2-1.3); Total Protein 7.5 g/dL (6.3-8.2)
[2021-02-27 11:37] LABS: INR 0.9 (<1.2); Partial Thromboplastin Time 29.1 sec (22.0-30.0); Prothrombin Time 10.1 sec (9.0-12.0)
[2021-02-27 12:24] VITALS: BP 187/89; PULSE 89; RESP 20
== END 2021-02-27 12:25 | disposition home or self-care (01) ==
LOC: EC 09:47
DX: U07.1 COVID-19 (principal); I10 Essential (primary) hypertension; E11.9 Type 2 diabetes mellitus without complications; E78.5 Hyperlipidemia, unspecified; F32.9 Major depressive disorder, single episode, unspecified; Z79.84 Long term (current) use of oral hypoglycemic drugs; Z90.89 Acquired absence of other organs; Z79.899 Other long term (current) drug therapy
CPT/HCPCS: 99285 ×2; 96374 ×2; 96375 ×2; 96361 ×2; 36415; 93005; 80053; 82728; 83605; 83615; 83735; 85025; 85610; 85730; 86140; 87040; 84145; 87635; 71045; J1100; J2405